=== PATIENT | female | born 1980 | race Caucasian/White ===

== ENCOUNTER 2018-09-15 06:17 | Day surgery (SDC) | payer OTHER ==
[~2018-09-15] VITALS: Ht 154.9 cm; Wt 69.1 kg
[~2018-09-15 06:17] MED LIST: SODIUM CHLORIDE 0.9% 1,000 ML IV ONE
[2018-09-15] MEDS ORDERED: LIDOCAINE 4% 50 ML SOLUTION TP ONE (06:18)
[2018-09-15] MEDS ORDERED: LIDOCAINE 2% 30 ML JELLY TP ONE (06:18)
[2018-09-15] MEDS ORDERED: ALBUTEROL SULFATE 2.5 MG/0.5 ML NEB SOLUTION NEB ONE (06:18)
[2018-09-15] MEDS ORDERED: EPINEPHrine 1:1,000 [1 MG/ML] AMP IM ONE (06:18)
[2018-09-15] MEDS ORDERED: BENZOCAINE 20% 50 MCG/SPRAY 57 GM TP ONE (06:18)
[2018-09-15] MEDS ORDERED: SODIUM CHLORIDE 0.9% 1,000 ML IV ONE (06:30)
[2018-09-15 07:35] LABS: GLUCOMETER DEV NAME(LOC) SDS.; GLUCOSE,POINT OF CARE 129 MG/DL (70-110)
[2018-09-15] MEDS ORDERED: MONT10TA21 PO (07:37)
[2018-09-15] MEDS ORDERED: PRED10 PO (07:37)
[2018-09-15] MEDS ORDERED: BECL10.62 IH (07:37)
[2018-09-15] MEDS ORDERED: FLUT16H NASAL (07:37)
[2018-09-15] MEDS ORDERED: LEVO500 PO (07:37)
[2018-09-15] MEDS ORDERED: MIDAZOLAM HCL 2 MG/2 ML VIAL ONE (08:18)
[2018-09-15] MEDS ORDERED: FentaNYL CITRATE-PF 100 MCG/2 ML VIAL ONE (08:18)
[2018-09-15] MEDS ORDERED: MethylPREDNISolone SOD SUCC 125 MG/2 ML VIAL ONE (08:42)
[2018-09-15] MEDS ORDERED: MethylPREDNISolone SOD SUCC 125 MG/2 ML VIAL IVP ONE (08:45)
[2018-09-15] MEDS ORDERED: OXYGEN THERAPY IH SCH (20:00)
== END 2018-09-15 10:30 | disposition home or self-care (01) ==
LOC: SURGERY 06:17
PROVIDERS: ATTEND Internal Medicine Critical Care Medicine
DX: J38.4 Edema of larynx (principal); B37.0 Candidal stomatitis
CPT/HCPCS: 31623; 31624; 71045; 82962; 84703; 87015; 87070; 87077; 87101; 87186; 87205; 87206; 87220; 88108; 88312; J0171; J2250; J2930; J3010; J7030